=== PATIENT | female | born 2000 | race Caucasian/White ===

== ENCOUNTER 2021-09-09 15:22 | Emergency (ER) | payer OTHER ==
[~2021-09-09] VITALS: Ht 177.8 cm; Wt 45.4 kg
[2021-09-09] MEDS ORDERED: IBU600 MG PO (18:01)
== END 2021-09-09 19:08 | disposition home or self-care (01) ==
LOC: EMR PED 15:22
DX: R19.09 Other intra-abdominal and pelvic swelling, mass and lump (principal); M25.571 Pain in right ankle and joints of right foot